=== PATIENT | female | born 1990 | race African-American/Black ===

== ENCOUNTER 2016-11-23 17:40 | Inpatient (IN) | payer MEDICAID ==
[~2016-11-23] VITALS: Ht 157.5 cm; Wt 121.7 kg
[2016-11-23] MEDS ORDERED: KETOROLAC 30 MG/1 ML ONE ×2 (17:54→21:14)
[2016-11-23] MEDS ORDERED: SODIUM CHLORIDE FLUSH 10ML SYR IVF ONE (18:00)
[2016-11-23] MEDS ORDERED: KETOROLAC 30 MG/1 ML IVPush ONE ×2 (18:00→21:30)
[2016-11-23] MEDS ORDERED: HYDROmorphone 1 MG/ML, 1ML IVPush PRN (18:00)
[2016-11-23] MEDS ORDERED: SODIUM CHLORIDE 0.9% 1,000ML IVBOLUS ONE (18:00)
[2016-11-23] MEDS ORDERED: HYDROmorphone 1 MG/ML, 1ML ONE ×2 (18:11→21:12)
[2016-11-23 19:02] LABS: BLOOD UREA NITROGEN 10 mg/dL (7-18)
[2016-11-23] MEDS ORDERED: CEFTRIAXONE PMX 1GM/50ML 50 ML IV ONE (20:59)
[2016-11-23] MEDS ORDERED: CEFTRIAXONE PMX 1GM/50ML 50 ML ONE (21:02)
[2016-11-23] MEDS ORDERED: METOCLOPRAMIDE 5 MG/ML, 2ML ONE (21:37)
[2016-11-23] MEDS ORDERED: ENOXAPARIN 40 MG/0.4 ML ONE ×2 (21:42→21:56)
[2016-11-23] MEDS: SODIUM CHLORIDE 0.9% 1,000 ML IV SCH (21:43)
[2016-11-23] MEDS: ENOXAPARIN 40 MG/0.4 ML SQ SCH (21:43)
[2016-11-23] MEDS ORDERED: TEMAZEPAM 15 MG CAPSULE PO PRN (22:00)
[2016-11-23] MEDS ORDERED: METOCLOPRAMIDE 5 MG/ML, 2ML IVPush ONE (22:00)
[2016-11-23] MEDS ORDERED: ACETAMINOPHEN 325 MG TABLET PO PRN (22:00)
[2016-11-23 22:42] VITALS: BP 118/82
[2016-11-24] MEDS: SODIUM CHLORIDE 0.9% 1,000 ML IV SCH ×4 (00:57→21:33)
[2016-11-24 03:00] VITALS: BP 118/62
[2016-11-24 04:38] LABS: BLOOD UREA NITROGEN 11 mg/dL (7-18)
[2016-11-24 08:05] VITALS: BP 116/73
[2016-11-24] MEDS: KETOROLAC 30 MG/1 ML IVPush PRN ×3 (08:14→21:33)
[2016-11-24] MEDS: CEFTRIAXONE PMX 1GM/50ML 50 ML IV SCH (08:14)
[2016-11-24] MEDS: HYDROmorphone 2 MG/ML, 1ML IVPush PRN ×2 (08:55→16:28)
[2016-11-24] MEDS: ONDANSETRON 2MG/ML, 2ML IVPush PRN ×2 (08:55→18:11)
[2016-11-24 14:23] VITALS: BP 117/77
[2016-11-24] MEDS ORDERED: ACETAMINOPHEN 325 MG TABLET PO PRN (19:30)
[2016-11-24] MEDS ORDERED: TEMAZEPAM 15 MG CAPSULE PO PRN (19:30)
[2016-11-24 20:05] VITALS: BP 119/82
[2016-11-24] MEDS: ENOXAPARIN 40 MG/0.4 ML SQ SCH (21:29)
[2016-11-25] MEDS: HYDROmorphone 2 MG/ML, 1ML IVPush PRN ×5 (03:29→21:26)
[2016-11-25] MEDS: ONDANSETRON 2MG/ML, 2ML IVPush PRN ×4 (03:29→22:06)
[2016-11-25] MEDS: SODIUM CHLORIDE 0.9% 1,000 ML IV SCH ×3 (03:30→21:59)
[2016-11-25 03:33] VITALS: BP 127/76
[2016-11-25 08:15] VITALS: BP 121/78
[2016-11-25] MEDS: CEFTRIAXONE PMX 1GM/50ML 50 ML IV SCH ×2 (09:31→21:58)
[2016-11-25] MEDS: DOCUSATE 100 MG CAPSULE PO SCH ×2 (11:16→21:58)
[2016-11-25] MEDS ORDERED: PROMETHAZINE 25 MG/ML, 1ML IM PRN (11:30)
[2016-11-25] MEDS: POLYETHYLENE GLYCOL 17 GM PACKET PO SCH (13:03)
[2016-11-25 13:53] VITALS: BP 131/84
[2016-11-25 19:14] VITALS: BP 125/85
[2016-11-25] MEDS: ENOXAPARIN 40 MG/0.4 ML SQ SCH (21:58)
[2016-11-26 02:16] VITALS: BP 110/74
[2016-11-26] MEDS: HYDROmorphone 2 MG/ML, 1ML IVPush PRN ×3 (02:18→10:14)
[2016-11-26 04:49] LABS: BLOOD UREA NITROGEN 2 mg/dL (7-18)
[2016-11-26 04:53] LABS: ASPARTATE AMINO TRANSFERASE 9 U/L (15-37)
[2016-11-26] MEDS: SODIUM CHLORIDE 0.9% 1,000 ML IV SCH ×3 (06:34→21:34)
[2016-11-26 06:40] VITALS: BP 133/86
[2016-11-26] MEDS: CEFTRIAXONE PMX 1GM/50ML 50 ML IV SCH ×2 (09:41→21:31)
[2016-11-26] MEDS: POLYETHYLENE GLYCOL 17 GM PACKET PO SCH (09:41)
[2016-11-26] MEDS: DOCUSATE 100 MG CAPSULE PO SCH ×2 (09:41→21:31)
[2016-11-26] MEDS: ONDANSETRON 2MG/ML, 2ML IVPush PRN (10:14)
[2016-11-26 13:28] VITALS: BP 127/84
[2016-11-26] MEDS ORDERED: BISACODYL 10 MG SUPP PR PRN (14:00)
[2016-11-26] MEDS ORDERED: METHYLNALTREXONE 12 MG/0.6 ML SQ SCH (14:00)
[2016-11-26] MEDS ORDERED: MAGNESIUM CITRATE 300ML ORAL SOL PO PRN (14:00)
[2016-11-26] MEDS: OXYcodone IR 5MG TABLET PO PRN ×3 (14:55→21:31)
[2016-11-26 20:35] VITALS: BP 117/76
[2016-11-26] MEDS: SENNA/DOCUSATE TABLET PO SCH (21:31)
[2016-11-26] MEDS: ENOXAPARIN 40 MG/0.4 ML SQ SCH (22:15)
[2016-11-27] MEDS: OXYcodone IR 5MG TABLET PO PRN ×2 (01:04→08:47)
[2016-11-27 04:50] VITALS: BP 112/76
[2016-11-27] MEDS: SODIUM CHLORIDE 0.9% 1,000 ML IV SCH ×2 (06:00→16:07)
[2016-11-27 08:27] VITALS: BP 131/88
[2016-11-27] MEDS: SENNA/DOCUSATE TABLET PO SCH ×2 (08:47→21:49)
[2016-11-27] MEDS: DOCUSATE 100 MG CAPSULE PO SCH ×2 (08:47→21:49)
[2016-11-27] MEDS: POLYETHYLENE GLYCOL 17 GM PACKET PO SCH (08:47)
[2016-11-27] MEDS: CEFTRIAXONE PMX 1GM/50ML 50 ML IV SCH ×2 (08:48→21:49)
[2016-11-27] MEDS: HYDROcodone/APAP 5/325 TABLET PO PRN ×2 (12:53→19:01)
[2016-11-27 14:26] VITALS: BP 136/83
[2016-11-27 19:40] VITALS: BP 125/81
[2016-11-27] MEDS: ENOXAPARIN 40 MG/0.4 ML SQ SCH (21:50)
[2016-11-27] MEDS ORDERED: GLYCERIN ADULT SUPP PR PRN (22:00)
[2016-11-28] MEDS: SODIUM CHLORIDE 0.9% 1,000 ML IV SCH
[2016-11-28] MEDS: HYDROcodone/APAP 5/325 TABLET PO PRN (01:06)
[2016-11-28 03:05] VITALS: BP 103/60
[2016-11-28] MEDS ORDERED: CIPR500T87 PO (07:03)
[2016-11-28 08:04] VITALS: BP 142/92
[2016-11-28] MEDS: CEFTRIAXONE PMX 1GM/50ML 50 ML IV SCH (09:10)
[2016-11-28] MEDS: POLYETHYLENE GLYCOL 17 GM PACKET PO SCH (09:11)
[2016-11-28] MEDS: DOCUSATE 100 MG CAPSULE PO SCH (09:11)
[2016-11-28] MEDS: SENNA/DOCUSATE TABLET PO SCH (09:11)
[2016-11-28 11:00] VITALS: BP 135/76
== END 2016-11-28 11:13 | disposition home or self-care (01) | DRG 689 ==
LOC: ED 21:32 → EDIP 21:33 → SUATTDRO 21:33 → 3NW 22:26 → 4NOR 11-25 20:35 → DCLOUNGE 11-28 11:05
PROVIDERS: ADMIT Internal Medicine
DX: N10 Acute pyelonephritis (principal); A41.9 Sepsis, unspecified organism; Z68.42 Body mass index [BMI] 45.0-49.9, adult; N39.0 Urinary tract infection, site not specified; B96.20 Unspecified Escherichia coli [E. coli] as the cause of diseases classified elsewhere; K59.00 Constipation, unspecified; D64.9 Anemia, unspecified; E66.01 Morbid (severe) obesity due to excess calories
CPT/HCPCS: 36415; 74176; 80048; 80053; 81001; 82040; 83735; 85025; 87077; 87086; 87186; 96361; 96374; 96375; J0696; J1170; J1650; J1885; J2405; J2765; J7030